=== PATIENT | male | born 1950 | race Caucasian/White ===

== ENCOUNTER 2017-02-07 11:56 | Inpatient (IN) | payer OTHER, MEDICARE ==
[2017-01-16 09:30] VITALS: BMI 26.0
--- NOTE | 2017-01-16 10:00 | PAT Medication Instructions ---
Service Date Jan 16, 2017. Current Home Medication List Acetaminophen (Tylenol Arthritis Ext Rel), 650 MG PO AM/HS Aspirin (Aspirin Ec), 81 MG PO QPM Celecoxib (CeleBREX), 200 MG PO QPM Cetirizine (Zyrtec), 10 MG PO HS Lisinopril (Zestril), 10 MG PO QPM Multivitamin (Multivitamin), 1 TAB PO QAM Simvastatin (Zocor), 20 MG PO QPM Tamsulosin Hcl (Flomax), 0.4 MG PO QPM Medication Instructions For Your Scheduled Surgery - Check with surgeon for instructions: Celecoxib (CeleBREX), 200 MG PO QPM - Hold the following medications the morning of surgery: Multivitamin (Multivitamin), 1 TAB PO QAM - Take the following medications the morning of surgery with a sip of water: Acetaminophen (Tylenol Arthritis Ext Rel), 650 MG PO AM/HS - Hold the following medications as scheduled the night before surgery: Lisinopril (Zestril), 10 MG PO QPM - Take the following medications as scheduled the night before surgery: Simvastatin (Zocor), 20 MG PO QPM Tamsulosin Hcl (Flomax), 0.4 MG PO QPM Cetirizine (Zyrtec), 10 MG PO HS Aspirin (Aspirin Ec), 81 MG PO QPM Acetaminophen (Tylenol Arthritis Ext Rel), 650 MG PO AM/HS If you have any questions please call us at [phone] or [phone] or [phone]
--- NOTE | 2017-01-16 10:39 | DIAGNOSTIC IMAGING REPORT ---
CHEST PREADMISSION(PA/LAT) CLINICAL HISTORY: Preoperative chest COMPARISON STUDY: No previous studies for comparison. FINDINGS: The cardiac and mediastinal contours are normal. There is no evidence of focal pulmonary consolidation. There is no evidence of failure. No pleural effusions are visualized.[ IMPRESSION: No active disease in the chest. Electronically signed by: Derik Geiger M.D. 01/16/2017 10:37 AM Dictated Date/Time: 01/16/2017 10:37 AM
[2017-01-16 10:41] LABS: BASO % 0.8 %; BASO ABS # 0.07 K/uL (0-0.2); COMPLETE YES; HEMATOCRIT 39.4 % (42-52); IG% 0.4 %; LYMPH % 10.6 %; LYMPH ABS # 0.94 K/uL (1.2-3.4); MEAN CELL VOLUME 91.2 fL (80-100); MEAN CORPUSCULAR HEMOGLOBIN 31.9 pg (25-34); MEAN PLATELET VOLUME 9.5 fL (7.4-10.4); MONO % 6.4 %; NEUT % 79.8 %; PLATELET COUNT 226 K/uL (130-400); RED BLOOD COUNT 4.32 M/uL (4.7-6.1); WHITE BLOOD COUNT 8.89 K/uL (4.8-10.8)
[2017-01-16 10:43] LABS: URINE APPEARANCE CLEAR (CLEAR); URINE BILIRUBIN NEG (NEG); URINE COLOR YELLOW; URINE EPITHELIAL CELL AUTO 0-5 /lpf (0-5); URINE NITRITE NEG (NEG); URINE PH 5.5 (4.5-7.5); URINE SPECIFIC GRAVITY 1.014 (1.000-1.030); UROBILINOGEN NEG (NEG)
[2017-01-16 10:45] LABS: MANUAL MICROSCOPIC REQUIRED? NO; REVIEW REQ? NO
[2017-01-16 11:02] LABS: PARTIAL THROMBOPLASTIN RATIO 1.2; PROTHROMBIN TIME (PATIENT) 10.3 SECONDS (9.0-12.0)
[2017-01-16 11:15] LABS: BUN/CREATININE RATIO 13.2 (10-20); CALCIUM 9.6 mg/dl (8.5-10.1); CREATININE 1.2 mg/dl (0.60-1.40); POTASSIUM 5.2 mmol/L (3.5-5.1)
[2017-01-16 12:08] LABS: ESTIMATED AVERAGE GLUCOSE 111 mg/dl; HA1C FLAG Normal (Normal)
--- NOTE | 2017-02-06 12:17 | HISTORY & PHYSICAL EXAMINATION ---
DATE OF ADMISSION: 02/07/2017 CHIEF COMPLAINT: Right hip pain. HISTORY OF PRESENT ILLNESS: The patient is a 66-year-old male with known right hip osteoarthritis. He takes Celebrex daily for pain and inflammation. He takes Tylenol intermittently for pain as needed. He uses a cane when walking long distances. Due to ongoing pain and disability, he now desires to proceed with right total hip arthroplasty. PAST MEDICAL HISTORY: Hypertension, hypercholesterolemia, osteoarthritis, skin cancer, acid reflux. PAST SURGICAL HISTORY: Sinus surgery and right shoulder surgery, colonoscopy. MEDICATIONS: Lisinopril 10 mg daily, simvastatin 20 mg daily, Celebrex 200 mg daily, cetirizine 10 mg daily, multivitamin daily, tamsulosin 0.4 mg daily, aspirin 81 mg daily, Tylenol Arthritis as needed. ALLERGIES: HE IS LACTOSE INTOLERANT. SOCIAL HISTORY AND REVIEW OF SYSTEMS: Noncontributory. PHYSICAL EXAMINATION: GENERAL: Well-nourished, well-developed elderly male who appears his stated age. HEENT: Normocephalic, atraumatic, extraocular movements intact, oropharynx pink and moist. NECK: Supple without adenopathy. LUNGS: Clear to auscultation bilaterally. HEART: Regular rate and rhythm. ABDOMEN: Soft, nontender, nondistended. EXTREMITIES: The upper extremities are within normal limits. The right hip demonstrates limited range of motion. There is limitation of active and passive internal/external rotation with pain at end range. X-RAYS: X-rays were reviewed. Shows complete loss of the right hip joint space. There is bone on bone arthritis. There is osteophyte formation about the femoral head and acetabulum. ASSESSMENT: Right hip degenerative joint disease. PLAN: Risks versus benefits were discussed. Consent was obtained. The patient's primary care physician is Dr. Uche Gomez from [facility]. Will proceed with right total hip arthroplasty upon preoperative workup and medical clearance.
[~2017-02-07] VITALS: Ht 170.2 cm; Wt 77.0 kg
[2017-02-07] VITALS (9 sets, daily range): BP systolic 115–165; BP diastolic 75–99; PULSE 60–104; TEMP 36.3–36.7; O2SAT 96–100; Ht 170.2 cm; Wt 77.0 kg
[2017-02-07] MEDS: TRANEXAMIC ACID INJ 1,000 MG in SODIUM CHLORIDE 0.9% 100ML 100 ML IV SCH ×2 (06:30→13:13)
--- NOTE | 2017-02-07 11:44 | History & Physical Bridge Note ---
H&P Re-Evaluation Bridge Note: I have examined the patient, reviewed the History & Physical and in the interval since the performance of the History & Physical I have noted the following changes of clinical significance: No changes noted
[~2017-02-07 11:56] MED LIST: ACET1TAB84 PO; ACETAMINOPHEN 500 MG TAB PO SCH; ASPI81TA28 PO; BUPIVACAINE 0.5 % 5 MG/1 ML PF 10ML VIAL ONE; CEFAZOLIN 2000 MG/60 ML D5W 60 ML IV SCH; CETI10TA84 PO; CLB/200 PO; CeleBREX 200 MG CAP PO SCH; DEXAMETHASONE 4 MG TAB PO SCH; FAMOTIDINE 20 MG TAB PO SCH; GABAPENTIN 300 MG CAP PO SCH; LACTATED RINGER'S 1000ML 1,000 ML IV SCH; LACTATED RINGER'S 1000ML 500 ML IV ONE; LACTATED RINGER'S 1000ML IV SCH; LISI-461 PO; MULT-506 PO; ROPIVACAINE 5MG/ML 30 ML 150 MG, BUPIVACAINE/EPINEPHR 0.5% MPF 30 ML, KETOROLAC TROMETH... INFIL SCH; SIMV20TA2 PO; TAMS0.4C38 PO
[2017-02-07] MEDS ORDERED: MIDAZOLAM HCL 1 MG/ML 2ML VIAL ONE (11:58)
[2017-02-07] MEDS ORDERED: POVIDONE-IODINE OP SOLN 30 ML BTL ONE (13:34)
[2017-02-07] MEDS ORDERED: ORTHO JOINT ANESTHETIC ONE (13:34)
[2017-02-07] MEDS ORDERED: BACITRACIN 50000 UNIT VIAL ONE (13:34)
[2017-02-07] MEDS ORDERED: HYDROmorphone INJ 2 MG/ML SYR/VIAL IV PRN (13:45)
[2017-02-07] MEDS ORDERED: ATROPINE SULFATE 0.1 MG/ML 5ML SYR IV PRN (13:45)
[2017-02-07] MEDS ORDERED: ONDANSETRON INJ 2 MG/ML 2 ML VIAL IV PRN ×2 (13:45→15:30)
[2017-02-07] MEDS ORDERED: EpHEDrine SULFATE INJ 50 MG/ML AMP IV PRN (13:45)
[2017-02-07] MEDS ORDERED: PHENYLEPHRINE 100MCG/ML 5ML SYR IV PRN (13:45)
--- NOTE | 2017-02-07 14:53 | [facility] Post Operative Brief Note ---
Immediate Operative Summary Operative Date Feb 07, 2017. Pre-Operative Diagnosis Right hip degenerative joint disease Post-Operative Diagnosis same Procedure(s) Performed Right Total Hip Arthroplasty; Uncemented Surgeon Dr. Ochoa Fur Coat Sewer Surgeon(s) Demetrio Santana PA-C Estimated Blood Loss 150 ML Findings severe OA Specimens a. right femoral head Complication(s) None Disposition Recovery Room / PACU
[2017-02-07] MEDS ORDERED: MoRPHine SULFATE 2 MG/ML CARP IV PRN (15:30)
[2017-02-07] MEDS ORDERED: TRAMADOL HCL 50 MG TAB PO PRN (15:30)
[2017-02-07] MEDS ORDERED: ALUMINUM/MAGNESIUM/SIMETH (MAALOX MAX) 30 ML UDC PO PRN (15:30)
[2017-02-07] MEDS ORDERED: BISACODYL 10 MG SUPP PR PRN (15:30)
[2017-02-07] MEDS ORDERED: MAGNESIUM HYDROXIDE SUSP 30 ML UDC PO PRN (15:30)
--- NOTE | 2017-02-07 15:47 | Anesthesiology Progress Note ---
Anesthesia Post Op Note Date & Time Feb 07, 2017 at 15:47 Vital Signs Pain Intensity: 0 Vital Signs Past 12 Hours Date Time Temp Pulse Resp B/P (MAP) Pulse Ox O2 Delivery O2 Flow Rate FiO2 02/07/17 15:35 58 16 142/74 100 Nasal Cannula 2 02/07/17 15:25 56 16 125/72 100 Nasal Cannula 2 02/07/17 15:15 36.1 71 16 123/70 98 Nasal Cannula 2 02/07/17 12:00 36.6 80 20 159/98 96 Room Air Notes Mental Status: alert / awake / arousable, participated in evaluation Pt Amnestic to Procedure: Yes Nausea / Vomiting: adequately controlled Pain: adequately controlled Airway Patency, RR, SpO2: stable & adequate BP & HR: stable & adequate Hydration State: stable & adequate Neuraxial Anesthesia: was administered, sensory block is resolving Anesthetic Complications: no major complications apparent
--- NOTE | 2017-02-07 15:50 | OPERATIVE REPORT ---
DATE OF OPERATION: 02/07/2017 PREOPERATIVE DIAGNOSIS: Osteoarthritis, right hip. POSTOPERATIVE DIAGNOSIS: Osteoarthritis, right hip. PROCEDURE: Right connective total hip arthroplasty. SURGEON: Dr. Ochoa. DROP WORKER: ALBARO Lozada ANESTHESIA: Spinal. COMPLICATIONS: None. IMPLANTS USED: Acetabular reamer used 56, acetabular shell 56, stem Accolade II #4, head -5 x 36 mm ceramic. DESCRIPTION OF PROCEDURE: Following induction of adequate spinal anesthesia, the patient was placed in left lateral decubitus position and right Olvin-Langenbeck incision was made. Subcutaneous tissue was sharply dissected. Electrocautery used for hemostasis. The fascia was incised throughout the length of the wound and a luna scissor placed beneath the short external rotators. The pyriformis was tagged with #1 Vicryl. The short external rotators were divided from the posterior aspect of the femur using electrocautery. These were swept posteriorly. A T-capsulotomy incision was made and the hip was dislocated using a combination of flexion, adduction, and internal rotation. Exposure of the femoral neck with old-style Hohmann and a blunt Hohmann was carried out and a femoral rasp was utilized as a guide for making the appropriate level femoral neck cut. This bone fragment was removed and reserved on the back table. Next, attention was turned to the acetabulum where bone hook was used to retract the femur while the offset retractors were placed anterior and posteriorly. A double-angled Hohmann was placed in superior and anterior position exposing the acetabulum nicely. Acetabular labrum as well as posterior capsule elements were removed using a long knife and a long pickup. Fovea centralis was cleared of all soft tissue. Sequential reamings were carried up to a 56 and decision was made to proceed with impaction of a 56 trabecular metal cup. This was impacted and held using a single 35 mm bone screw. The acetabular liner was placed with 15 of elevated posterior wall in the superior and posterior position. Next, attention was turned to the femoral portion of the case where a Bovie and pickup was used to further clear short external rotators from their insertion on the femur. Box osteotome was used to gain access to the femoral canal and the T-handled rasp and a rattail rasp were used to further open and lateral the canal. Sequentially raspings were carried up to a 56 which gave good fit and fill of the proximal femur. A trial reduction was carried out and standard offset femoral neck component was chosen as the size to be used. A -5 x 36 mm ceramic femoral head was impacted into position, +0 head was utilized. The trial reduction was stable in all degrees of rotation with no [id number] impingement. The hip was dislocated. The trial components were removed and the final femoral stem, neck, and femoral head combination were assembled on the back table and impacted into position. Hip was relocated. Range of motion checked once again successful and the wound was irrigated. The pyriformis repaired to the greater trochanter using #1 Vicryl [id number] suture. A Hemovac drain was placed and the fascia was closed using #1 Vicryl, subcutaneous tissue was closed using 0 Dexon, and skin was closed with wolf. Sterile dressing of Adaptic, 4 x 4's, ABDs, and foam tape was applied. The patient tolerated the procedure well. Due to the complex nature of the procedure, the entire surgery was performed with the operational assistance of ALBARO Lozada. The web assistant, under direct supervision, was involved in the actual performance of all aspects of the surgical procedure including hemostasis, tissue retraction and incision, instrument management, patient positioning, and wound closure. DISPOSITION: Recovery room stable. I attest to the content of the Intraoperative Record and any orders documented therein. Any exceptions are noted below. MARCE
--- NOTE | 2017-02-07 15:52 | DIAGNOSTIC IMAGING REPORT ---
RIGHT PELVIS/UNILATERAL HIP 1 VIEW CLINICAL HISTORY: Postoperative evaluation of the right hip. COMPARISON: None FINDINGS: Alignment of the total right hip arthroplasty is anatomic. There is no periprosthetic fracture or unexpected radiopaque foreign body. Drains are in place. The acetabular screw extends through the cortex of the acetabulum. IMPRESSION: 1. Status post total right hip arthroplasty. No periprosthetic fracture or unexpected radiopaque foreign body. 2. Acetabular screw extends through cortex of acetabulum. Electronically signed by: Sathya Haley M.D. 02/07/2017 3:51 PM Dictated Date/Time: 02/07/2017 3:50 PM
[2017-02-07] MEDS: OXYCODONE HCL IR 5 MG TAB (IMMEDIATE RELEASE) PO PRN ×2 (17:03→21:48)
[2017-02-07] MEDS: FERROUS GLUCONATE 324 MG TAB PO SCH (17:33)
[2017-02-07] MEDS: D5W AND 1/2NSS + 20MEQ KCL 1,000 ML IV SCH (17:33)
[2017-02-07] MEDS ORDERED: PNEUMOCOCCAL ADMINISTRATION CHARGE ONE (18:00)
[2017-02-07] MEDS ORDERED: PNEUMOCOCCAL POLYSACCHARIDES 25 MCG/0.5 ML VIAL/SYR IM. ONE (18:00)
[2017-02-07] MEDS: ACETAMINOPHEN 500 MG TAB PO SCH (20:53)
[2017-02-07] MEDS: CETIRIZINE HCL 10 MG TAB PO SCH (20:53)
[2017-02-07] MEDS: SIMVASTATIN 20 MG TAB PO SCH (20:53)
[2017-02-07] MEDS: DOCUSATE SODIUM 100 MG CAP PO SCH (20:54)
[2017-02-07] MEDS: SENNA 8.6 MG TAB PO SCH (20:54)
[2017-02-07] MEDS: ASPIRIN 81 MG ECTAB PO SCH (20:54)
[2017-02-07] MEDS: LISINOPRIL 10 MG TAB PO SCH (20:55)
[2017-02-07] MEDS: TAMSULOSIN HCL 0.4 MG CAP PO SCH (20:55)
[2017-02-07] MEDS: CEFAZOLIN IV 1,000 MG in DEXTROSE 5% 50ML 50 ML IV SCH (21:47)
[2017-02-08] VITALS (8 sets, daily range): BP systolic 123–158; BP diastolic 71–82; PULSE 70–92; TEMP 36.6–36.9; O2SAT 95–99
[2017-02-08] MEDS: D5W AND 1/2NSS + 20MEQ KCL 1,000 ML IV SCH (01:56)
[2017-02-08] MEDS: OXYCODONE HCL IR 5 MG TAB (IMMEDIATE RELEASE) PO PRN ×5 (03:57→20:15)
[2017-02-08] MEDS: ACETAMINOPHEN 500 MG TAB PO SCH ×3 (03:58→20:16)
[2017-02-08] MEDS: CEFAZOLIN IV 1,000 MG in DEXTROSE 5% 50ML 50 ML IV SCH (06:01)
[2017-02-08 06:12] LABS: BASO % 0.1 %; BASO ABS # 0.01 K/uL (0-0.2); COMPLETE YES; HEMATOCRIT 29.6 % (42-52); IG% 0.3 %; LYMPH % 8.1 %; LYMPH ABS # 0.83 K/uL (1.2-3.4); MEAN CELL VOLUME 91.9 fL (80-100); MEAN CORPUSCULAR HEMOGLOBIN 31.4 pg (25-34); MEAN CORPUSCULAR HGB CONC 34.1 g/dl (32-36); MEAN PLATELET VOLUME 9.2 fL (7.4-10.4); MONO % 9.2 %; NEUT % 82.3 %; PLATELET COUNT 248 K/uL (130-400); RED BLOOD COUNT 3.22 M/uL (4.7-6.1); WHITE BLOOD COUNT 10.24 K/uL (4.8-10.8)
[2017-02-08 06:23] LABS: PROTHROMBIN TIME (PATIENT) 10.5 SECONDS (9.0-12.0)
[2017-02-08 06:47] LABS: BUN/CREATININE RATIO 10.1 (10-20); CALCIUM 8.1 mg/dl (8.5-10.1); CREATININE 1.2 mg/dl (0.60-1.40); POTASSIUM 4.6 mmol/L (3.5-5.1)
--- NOTE | 2017-02-08 07:33 | Clinical Documentation Query ---
CLINICAL DOCUMENTATION QUERY QUERY 1 OF 2 66 yo male s/p right total hip arthroplasty. In your clinical opinion is this patient being managed for: ( ) Acute blood loss anemia ( ) Not Agree ( ) Other explanation of clinical findings (Please Explain) ( ) Unable to determine (Please Define) ( ) Need to Discuss The medical record reflects the following clinical findings, treatment, and risk factors. Clinical Indicators: HGB 13.8 decreased to 10.1, EBL 150 ml, hemovac drain 255 ml Treatment: type and screen, IV hydration, serial hematology, I&O monitor Risk Factors: Age, s/p surgical intervention, blood loss of 150 ml QUERY 2 OF 2 In your clinical opinion is this patient being managed for: ( ) Hyponatremia ( ) Not Agree ( ) Other explanation of clinical findings (Please Explain) ( ) Unable to determine (Please Define) ( ) Need to Discuss The medical record reflects the following clinical findings, treatment, and risk factors. Clinical Indicators: Na 133 decreasing to 130 Treatment: IV Hydration, lab monitoring Risk Factors: Age, s/p surgical intervention with blood loss, hypotonic IV solution Please clarify and document your clinical opinion in the progress notes and discharge summary. Terms such as "probable", "suspected", "likely", "questionable", "possible", or "still to be ruled out" are acceptable. IF IN AGREEMENT, YOU MUST DOCUMENT ABOVE DIAGNOSTIC STATEMENT IN DAILY PROGRESS NOTES AND DISCHARGE SUMMARY. This document is not part of the patient's record. Thank You, Lorena German RN [phone]
--- NOTE | 2017-02-08 07:47 | Orthopedic Progress Note ---
Orthopedic Progress Note Date of Service Feb 08, 2017. Subjective Post OP Day: 1 Reports: feeling well Objective N/V intact, dressing C/D/I (Hemovac in place), toes mobile Date Time Temp Pulse Resp B/P (MAP) Pulse Ox O2 Delivery O2 Flow Rate FiO2 02/08/17 07:23 36.6 92 16 123/80 (94) 95 Room Air 02/08/17 03:40 36.6 88 16 129/81 (97) 97 Nasal Cannula 2.0 02/08/17 00:00 Nasal Cannula 2.0 02/07/17 23:22 36.7 93 15 115/75 (88) 98 Nasal Cannula 2.0 02/07/17 19:30 Room Air 02/07/17 19:09 36.4 95 17 142/85 (104) 99 Room Air 02/07/17 18:57 36.4 90 20 141/90 (107) 98 Nasal Cannula 2.0 02/07/17 18:31 147/92 (110) 02/07/17 18:06 36.5 104 18 165/99 (121) 100 2.0 02/07/17 17:05 36.3 70 18 148/81 (103) 98 Nasal Cannula 2.0 02/07/17 16:28 36.4 60 16 131/80 (97) 99 Nasal Cannula 2.0 02/07/17 15:55 96 Nasal Cannula 2.0 02/07/17 15:55 Nasal Cannula 2.0 02/07/17 15:55 36.4 63 16 135/82 (99) 96 Nasal Cannula 2.0 02/07/17 15:45 36.1 56 16 133/78 100 Nasal Cannula 2 02/07/17 15:35 58 16 142/74 100 Nasal Cannula 2 02/07/17 15:25 56 16 125/72 100 Nasal Cannula 2 02/07/17 15:15 36.1 71 16 123/70 98 Nasal Cannula 2 02/07/17 12:00 36.6 80 20 159/98 96 Room Air Laboratory Results 24 Hours: Test 02/08/17 05:50 White Blood Count 10.24 K/uL Red Blood Count 3.22 M/uL Hemoglobin 10.1 g/dL Hematocrit 29.6 % Mean Corpuscular Volume 91.9 fL Mean Corpuscular Hemoglobin 31.4 pg Mean Corpuscular Hemoglobin Concent 34.1 g/dl Platelet Count 248 K/uL Mean Platelet Volume 9.2 fL Neutrophils (%) (Auto) 82.3 % Lymphocytes (%) (Auto) 8.1 % Monocytes (%) (Auto) 9.2 % Eosinophils (%) (Auto) 0.0 % Basophils (%) (Auto) 0.1 % Neutrophils # (Auto) 8.43 K/uL Lymphocytes # (Auto) 0.83 K/uL Monocytes # (Auto) 0.94 K/uL Eosinophils # (Auto) 0.00 K/uL Basophils # (Auto) 0.01 K/uL Prothromb Time International Ratio 1.0 Prothrombin Time 10.5 SECONDS Assessment & Plan Assessment: 66 yo male stable POD #1 s/p right SHAZIA Plan: 1. Med management 2. DVT prophylaxis- ASA, SCDs 3. PT/OT 4. D/C planning- home w/ HH
--- NOTE | 2017-02-08 08:02 | Anesthesiology Progress Note ---
Anesthesia Post Op Note Date & Time Feb 08, 2017 at 08:02 Vital Signs Pain Intensity: 6.0 Vital Signs Past 12 Hours Date Time Temp Pulse Resp B/P (MAP) Pulse Ox O2 Delivery O2 Flow Rate FiO2 02/08/17 07:23 36.6 92 16 123/80 (94) 95 Room Air 02/08/17 03:40 36.6 88 16 129/81 (97) 97 Nasal Cannula 2.0 02/08/17 00:00 Nasal Cannula 2.0 02/07/17 23:22 36.7 93 15 115/75 (88) 98 Nasal Cannula 2.0 Notes Mental Status: alert / awake / arousable, participated in evaluation Pt Amnestic to Procedure: Yes Nausea / Vomiting: adequately controlled Pain: adequately controlled Airway Patency, RR, SpO2: stable & adequate BP & HR: stable & adequate Hydration State: stable & adequate Neuraxial Anesthesia: sensory block resolved Anesthetic Complications: no major complications apparent
[2017-02-08] MEDS: FERROUS GLUCONATE 324 MG TAB PO SCH ×3 (08:29→17:54)
[2017-02-08] MEDS: PANTOprazole SOD 40 MG TAB PO SCH (08:30)
[2017-02-08] MEDS: MULTIVITAMIN TAB PO SCH (08:30)
[2017-02-08] MEDS: ASPIRIN 81 MG ECTAB PO SCH ×2 (08:30→21:00)
[2017-02-08] MEDS: DOCUSATE SODIUM 100 MG CAP PO SCH ×2 (08:30→21:00)
--- NOTE | 2017-02-08 11:45 | Discharge Instructions ---
Discharge Instructions Date of Service Feb 08, 2017. Admission Reason for Admission: Right Hip Osteoarthritis Discharge Discharge Diagnosis / Problem: Right Hip Osteoarthritis Discharge Goals Goal(s): Decrease discomfort, Improve function Activity Recommendations Activity Limitations: per Instructions/Follow-up section Weightbearing Status: Right weightbearing (as tolerated) . Instructions / Follow-Up Instructions / Follow-Up ACTIVITY RECOMMENDATIONS: SELF CARE INSTRUCTIONS AFTER TOTAL HIP REPLACEMENT Until the incision and soft tissues around your hip have healed, there is a possibility that the hip prosthesis could dislocate. A. Observe the following precautions to prevent dislocation: 1. Don't bend your hip greater than 90 degrees. 2. Avoid crossing your legs or ankles while standing or lying. 3. Sit with your feet placed 6 inches apart. 4. When sitting, keep your knees below your hips. Sit on a firm surface, avoid deep, soft chairs and couches. Use an elevated toilet seat in the bathroom. 5. Don't bend over at the waist. Use a long handled shoehorn and a sock aid to help you put on your shoes and socks. A inseam trimming machine operator can help you package pick up objects that are too high or too low to reach. 6. Keep car riding to a minimum for at least one month after surgery. B. Your balance may be shaky for a while. Use crutches or a walker until directed by your doctor. C. Use hand rails when walking on stairs. D. Wear low heeled shoes with non-slip soles. E. Be sure that your floors are free of things that could trip you - throw rugs , electrical cords, small objects. Avoid wet and waxed floors, especially with crutches and canes. F. Try to walk several times a day with rest periods between. G. Continue with all the exercises taught to you in the hospital. Again, make walking a part of your daily routine. SPECIAL CARE INSTRUCTIONS: VERY IMPORTANT TO READ AND REVIEW A. You may still be at risk for phlebitis and blood clots. 1. Wear surgical stockings (TALYA hose) for 2 weeks after surgery to improve circulation and reduce swelling. 2. Take Aspirin 81mg twice daily for 4 weeks or as directed by your doctor. This is your blood thinner. 3. High risk patients may be prescribed a stronger blood thinner if necessary. 4. If you are on Coumadin normally, your family doctor/vp should monitor your blood work. Expect a phone call the day of or the day after bloodwork is drawn to adjust your dosage. B. You must take antibiotics before having dental work, bladder, bowel and other surgery. Your doctor will provide you with a permanent card to carry describing precautions. C. Call [facility] if you have a fever, redness or swelling around the incision, cloudy drainage from incision, or sudden increase in pain in your hip, not relieved by your regular pain medication. D. Please call the office at if you have any concerns or questions about your operation or recovery. * YOU MAY SHOWER IN 72 HOURS FROM THE DAY OF SURGERY; IF YOU ARE HAVING A MODERATED AMOUNT OF DRAINAGE, DO NOT SHOWER UNTIL THIS LESSENS. NO TUB BATHS UNTIL CLEARED BY YOUR DOCTOR. * WEAR TALYA HOSE 20 HOURS PER DAY FOR 2 WEEKS. * YOU SHOULD USE A WALKER OR CRUTCHES FOR 2-4 WEEKS. THIS WILL HELP PREVENT STRAIN ON YOUR HIP MUSCLE AND ALLOW IT TO HEAL PROPERLY. YOU MAY WEAN TO A CANE TOLERATED. * MOST PATIENTS WILL HAVE HOME NURSING FOR THERAPY. IF YOU DECIDE TO DO OUTPATIENT PHYSICAL THERAPY, PLEASE SCHEDULE THIS 3 TIMES PER WEEK. * YOU HAVE A ZIP CLOSURE SYSTEM TO CLOSE YOUR WOUND. PLEASE LEAVE THIS IN PLACE FOR 14 DAYS. IT WILL BE REMOVED IN THE OFFICE UNLESS YOU HAVE BEEN INSTRUCTED OTHERWISE. KEEP GAUZE DRESSING OVER THE INCISION SITE UNTIL SEEN BACK IN THE OFFICE. THIS WILL PROTECT THE WOUND AND THE ZIP CLOSURE UNIT. . FOLLOW UP VISIT: If appointment is not already scheduled: Please call [facility] to make a follow-up appointment for 2 weeks after your surgery at . Current Hospital Diet Patient's current hospital diet: Regular Diet, Low Lactose Diet Discharge Diet Recommended Diet: Regular Diet, Low Lactose Diet Procedures Procedures Performed: Right Total Hip Arthroplasty; Uncemented Pending Studies Studies pending at discharge: no Laboratory Results Hemoglobin A1c Test 01/16/17 10:13 Range/Units Estimated Average Glucose 111 mg/dl Hemoglobin A1c 5.5 4.5-5.6 % Medical Emergencies . Who to Call and When: Medical Emergencies: If at any time you feel your situation is an emergency, please call 911 immediately. . Non-Emergent Contact Non-Emergency issues call your: Surgeon Call Non-Emergent contact if: temperature is above 101.5, your pain is not controlled, your pain is worsening, wound has increased drainage, wound has increased redness . "Provider Documentation" section prepared by Demetrio Santana. . VTE Core Measure Inpt VTE Proph given/why not?: Other Anticoagulation, T.E.D. Stockings, SCD's
--- NOTE | 2017-02-08 12:40 | Clinical Documentation Query ---
CLINICAL DOCUMENTATION QUERY QUERY 1 OF 2 66 yo male s/p right total hip arthroplasty. In your clinical opinion is this patient being managed for: ( x ) Acute blood loss anemia ( ) Not Agree ( ) Other explanation of clinical findings (Please Explain) ( ) Unable to determine (Please Define) ( ) Need to Discuss The medical record reflects the following clinical findings, treatment, and risk factors. Clinical Indicators: HGB 13.8 decreased to 10.1, EBL 150 ml, hemovac drain 255 ml Treatment: type and screen, IV hydration, serial hematology, I&O monitor Risk Factors: Age, s/p surgical intervention, blood loss of 150 ml QUERY 2 OF 2 In your clinical opinion is this patient being managed for: ( ) Hyponatremia ( X ) Not Agree ( ) Other explanation of clinical findings (Please Explain) ( ) Unable to determine (Please Define) ( ) Need to Discuss The medical record reflects the following clinical findings, treatment, and risk factors. Clinical Indicators: Na 133 decreasing to 130 Treatment: IV Hydration, lab monitoring Risk Factors: Age, s/p surgical intervention with blood loss, hypotonic IV solution Please clarify and document your clinical opinion in the progress notes and discharge summary. Terms such as "probable", "suspected", "likely", "questionable", "possible", or "still to be ruled out" are acceptable. IF IN AGREEMENT, YOU MUST DOCUMENT ABOVE DIAGNOSTIC STATEMENT IN DAILY PROGRESS NOTES AND DISCHARGE SUMMARY. This document is not part of the patient's record. Thank You, Lorena German RN [phone]
[2017-02-08] MEDS: TAMSULOSIN HCL 0.4 MG CAP PO SCH (21:00)
[2017-02-08] MEDS: LISINOPRIL 10 MG TAB PO SCH (21:01)
[2017-02-08] MEDS: SIMVASTATIN 20 MG TAB PO SCH (21:01)
[2017-02-08] MEDS: CETIRIZINE HCL 10 MG TAB PO SCH (21:01)
[2017-02-08] MEDS: SENNA 8.6 MG TAB PO SCH (21:01)
[2017-02-09] MEDS: OXYCODONE HCL IR 5 MG TAB (IMMEDIATE RELEASE) PO PRN ×3 (00:17→12:25)
[2017-02-09] MEDS: ACETAMINOPHEN 500 MG TAB PO SCH ×2 (03:33→12:25)
[2017-02-09 07:48] VITALS: BP 152/79; PULSE 69; TEMP 36.6; O2SAT 97
[2017-02-09] MEDS: DOCUSATE SODIUM 100 MG CAP PO SCH (08:24)
[2017-02-09] MEDS: FERROUS GLUCONATE 324 MG TAB PO SCH ×2 (08:24→12:24)
[2017-02-09] MEDS: MULTIVITAMIN TAB PO SCH (08:25)
[2017-02-09] MEDS: ASPIRIN 81 MG ECTAB PO SCH (08:25)
[2017-02-09] MEDS: PANTOprazole SOD 40 MG TAB PO SCH (08:25)
--- NOTE | 2017-02-09 09:26 | Orthopedic Progress Note ---
Orthopedic Progress Note Date of Service Feb 09, 2017. Subjective Post OP Day: 2 Reports: feeling well, complaints (left shoulder pain) Additional Notes: Awake, alert. States he slept well. Having some left shoulder pain this AM. Hasn't limited his ROM. Pain mostly in left shoulder/axillary area and left chest wall. Off and on. Denies overt chest pain or chest pressure. No SOB. States hip pain is controlled. Objective calves soft nontender, N/V intact, hip located, incision C/D/I (ecchymosis noted with mild drainage on dressing), toes mobile Date Time Temp Pulse Resp B/P (MAP) Pulse Ox O2 Delivery O2 Flow Rate FiO2 02/09/17 08:34 Room Air 02/09/17 07:48 36.6 69 16 152/79 (103) 97 Room Air 02/09/17 00:45 Room Air 02/08/17 23:31 36.7 70 18 158/82 (107) 98 Room Air 02/08/17 20:11 80 137/75 (95) 99 Room Air 02/08/17 19:54 36.9 76 16 129/71 (90) 98 Room Air 02/08/17 16:30 Room Air 02/08/17 16:16 36.8 73 16 149/77 (101) 97 Room Air 02/08/17 11:32 88 97 02/08/17 11:25 36.6 88 16 124/80 (95) 97 Room Air Assessment & Plan Assessment: 66 yo male stable POD #2 s/p right SHAZIA Plan: Shoulder discomfort likely due to increased use with walker and trapeze use. Will watch for now Continue PT Planning for dc to home today with services. Inhouse Planning Pain Management: Ultram, PO Tylenol, Oxy IR DVT Prophylaxis: TEDs, SCDs, ASA Discharge Planning Discharge Planning: home with home health
[2017-02-09] MEDS ORDERED: ACET-24 PO (09:33)
[2017-02-09] MEDS ORDERED: SNK PO (09:33)
[2017-02-09] MEDS ORDERED: ASPI81TA28 PO (09:33)
[2017-02-09] MEDS ORDERED: RXC5 PO (09:33)
[2017-02-09 10:25] VITALS: BP 152/79; PULSE 69; TEMP 36.6; O2SAT 97
--- NOTE | 2017-02-10 11:02 | DISCHARGE SUMMARY ---
DISCHARGE DIAGNOSIS: Degenerative joint disease, right hip. SECONDARY DIAGNOSES: Hypertension, hypercholesterolemia, skin carcinoma in the past, and gastroesophageal reflux disease. CONSULTS: None. COMPLICATIONS: None. PROCEDURES: Right total hip arthroplasty by Dr. Ochoa on 02/07/2017. BRIEF HISTORY: As dictated in the history and physical. HOSPITAL SUMMARY: The patient was admitted on the above date and had the above-noted surgery performed, which he tolerated well. On the first postoperative day, he was feeling well. Neurovascularly intact. Dressings clean, dry and intact. Toes were mobile. Vital signs were stable. He was afebrile. Hemoglobin was 10.1. He was started on physical therapy protocol and continued on DVT prophylaxis and pain management. By his second postoperative day, he was feeling well, although complaining of some left shoulder pain. He states that he had been having the shoulder pain that morning, he was awake, alert and had slept well. He was limited with his range of motion. Pain was mostly in the left shoulder and axillary as well as the left lateral chest wall, off and on. Denied an overt chest pain or no chest pressure. No shortness of breath and states that his hip pain was controlled. Calves were soft and nontender. Neurovascularly intact. Hip was located. Incision was clean, dry and intact. He had ecchymosis noted with some mild drainage on the dressing. Toes were mobile. Vital signs were stable. He was afebrile. It was felt that the shoulder discomfort was likely due to increased use of a walker in trapezius. Dr. Asencio had seen the patient later that morning and at that point in time, his shoulder discomfort had resolved. He was progressing well and remaining stable and it was felt he could be discharged to home on 02/09/2017. For further review, please see chart. LAB AND X-RAY DATA: As per chart. DISCHARGE INSTRUCTIONS: The patient was discharged to home in satisfactory condition on 02/09/2017. DIET: Regular with low lactose. ACTIVITY: Weightbearing as tolerated right lower extremity. Follow [facility] instruction sheets and special care instructions as noted. Follow up with Dr. Ochoa in 2 weeks. The patient is to call for an appointment if one has not been made for you. DISCHARGE MEDICATIONS: Acetaminophen 1000 mg p.o. q. 8 hours for 30 days, oxycodone 5-10 mg p.o. q. 4 hours p.r.n., senna 17.2 mg p.o. at bedtime, resume taking Celebrex 200 mg p.o. q.p.m., Zyrtec 10 mg p.o. at bedtime, lisinopril 10 mg p.o. q.p.m., multivitamin 1 tab p.o. q.a.m., Zocor 20 mg p.o. q.p.m., Flomax 0.4 mg p.o. q.p.m., aspirin 81 mg p.o. b.i.d. for 30 days, and after 30 days, resume once daily dosing and stop taking Tylenol Arthritis extended release.
== END 2017-02-09 14:21 | disposition home health service (06) | DRG 470 ==
LOC: C.ACU 11:56 → C.3E 12:55 → ENRESERV 15:33
PROC: 0SR90JA Replacement of Right Hip Joint with Synthetic Substitute, Uncemented, Open Approach (ICD-10-PCS; principal; 2017-02-07 12:45)
DX: M16.11 Unilateral primary osteoarthritis, right hip (principal); I10 Essential (primary) hypertension; E78.00 Pure hypercholesterolemia, unspecified; M54.5 Low back pain; N40.0 Benign prostatic hyperplasia without lower urinary tract symptoms; Z87.891 Personal history of nicotine dependence; Z79.899 Other long term (current) drug therapy; Z79.82 Long term (current) use of aspirin; Z79.1 Long term (current) use of non-steroidal anti-inflammatories (NSAID)